=== PATIENT | female | born 1965 | race American Indian/Alaskan Native ===

== ENCOUNTER 2016-11-26 18:27 | Emergency (ER) | payer SELFPAY ==
[2016-11-26 18:28] VITALS: BMI 31.0
--- NOTE | 2016-11-26 18:41 | ED PDOC ---
Arrival/HPI - General Time Seen by Provider: 11/26/16 18:33 Historian: Patient - History of Present Illness Narrative History of Present Illness (Text): 11/26/16 18:40 51 year old female presents to the emergency department with right sided arm pain radiating from the arm to the neck since this morning. Patient describes a shooting pain that comes in intermittent "electric shocks." Denies fall or injury. Denies shortness of breath, lower extremity pain, or other complaints. PMD: None Time/Duration: 24 hours Symptom Onset: Sudden Symptom Course: Intermittent Modifying Factors (Text): None Associated Symptoms (Text): None Past Medical History - Provider Review Nursing Documentation Reviewed: Yes - Tetanus Immunization Tetanus Immunization: Up to Date - Past Medical History Past Medical History: No Previous - Psychiatric Hx Substance Use: No - Surgical History Hx Section: Yes (x3) - Anesthesia Hx Anesthesia: Yes Hx Anesthesia Reactions: No - Suicidal Assessment Feels Threatened In Home Enviroment: No Family/Social History - Physician Review Nursing Documentation Reviewed: Yes Family/Social History: Unknown Family HX Smoking Status: Never Smoked Hx Alcohol Use: No Hx Substance Use: No Hx Substance Use Treatment: No Allergies/Home Meds Allergies/Adverse Reactions: Allergies No Known Allergies Allergy (Verified 09/14/14 20:33) Review of Systems - Physician Review All systems were reviewed & negative as marked: Yes - Review of Systems Respiratory: absent: SOB Cardiovascular: Chest Pain. absent: Edema, Calf Pain Musculoskeletal: Other (Right arm pain radiating to the neck) Physical Exam Vital Signs Reviewed: Yes Vital Signs Temp Pulse Resp BP Pulse Ox 11/26/16 22:21 60 16 98 11/26/16 20:54 58 L 14 146/89 96 11/26/16 20:25 62 14 152/88 H 96 11/26/16 18:51 98.2 F 71 16 165/97 H 100 Temperature: Afebrile Blood Pressure: Hypertensive Pulse: Regular Respiratory Rate: Normal Appearance: Positive for: Well-Appearing, Non-Toxic, Comfortable Pain Distress: None Mental Status: Positive for: Alert and Oriented X 3 - Systems Exam Head: Present: Atraumatic, Normocephalic Pupils: Present: PERRL Extroacular Muscles: Present: EOMI Conjunctiva: Present: Normal Mouth: Present: Moist Mucous Membranes Neck: Present: Normal Range of Motion Respiratory/Chest: Present: Clear to Auscultation, Good Air Exchange. No: Respiratory Distress, Accessory Muscle Use Cardiovascular: Present: Regular Rate and Rhythm, Normal S1, S2. No: Murmurs Abdomen: Present: Normal Bowel Sounds. No: Tenderness, Distention, Peritoneal Signs Back: Present: Normal Inspection Upper Extremity: Present: Normal Inspection. No: Cyanosis, Edema Lower Extremity: Present: Normal Inspection. No: Edema Neurological: Present: GCS=15, CN II-XII Intact, Speech Normal Skin: Present: Warm, Dry, Normal Color. No: Rashes Psychiatric: Present: Alert, Oriented x 3, Normal Insight, Normal Concentration Medical Decision Making ED Course and Treatment: Impression: 51 year old female presents to the emergency department with right sided arm pain radiating from the arm to the neck since this morning. Differential Diagnosis include but are not limited to: Plan: -- EKG, Chest X-ray -- Labs -- Reassess and disposition Progress Notes: 11/26/16 21:54 pt with left sided neck pain to left arm, and "left chest". suspectd cervical etiology vs thorasic outlet. trop neg. ekg wnl atypical cp. advise outpt f/u and return precautions - Lab Interpretations Lab Results: 11/26/16 19:39 11/26/16 19:39 Lab Results 11/26/16 20:30: Urine Color Yellow, Urine Appearance Clear, Urine pH 6.0, Ur Specific [place] 1.025, Urine Protein Negative, Urine Glucose (UA) Negative, Urine Ketones Negative, Urine Blood Negative, Urine Nitrate Negative, Urine Bilirubin Negative, Urine Urobilinogen 1.0 H, Ur Leukocyte Esterase Negative, Urine HCG, Qual Negative 11/26/16 19:39: WBC 6.9, RBC 4.55, Hgb 12.2, Hct 37.6, MCV 82.6, MCH 26.8, MCHC 32.4, RDW 13.5, Plt Count 223, MPV 9.6, Gran % 63.0, Lymph % (Auto) 27.0, [place] % (Auto) 5.6, Eos % (Auto) 3.8, Baso % (Auto) 0.6, Gran # 4.36, Lymph # 1.9, [place] # 0.4, Eos # 0.3, Baso # 0.04, PT 11.1, INR 1.03, APTT 28.6, Sodium 141, Potassium 4.1, Chloride 105, Carbon Dioxide 29, Anion Gap 11, BUN 23 H, Creatinine 0.8, Est GFR ( Amer) > 60, Est GFR (Non-Af Amer) > 60, Random Glucose 90, Calcium 9.2, Magnesium 2.0, Total Bilirubin 0.8, AST 27, ALT 34, Alkaline Phosphatase 77, Lactate Dehydrogenase 518, Total Creatine Kinase 74, Troponin I < 0.01, Total Protein 8.4 H, Albumin 4.0, Globulin 4.4, Albumin/ Globulin Ratio 0.9 L - RAD Interpretation Radiology Orders: 11/26/16 18:47 CHEST PORTABLE [RAD] Stat - EKG Interpretation EKG Interpretation (Text): EKG shows NSR at 66 BPM, no ST/T wave changes Interpreted by ED Physician: Yes Type: 12 lead EKG - Medication Orders Current Medication Orders: Discontinued Medications Ketorolac Tromethamine (Toradol) 30 mg IVP STAT STA Stop: 11/26/16 19:55 Last Admin: 11/26/16 20:53 Dose: 30 MG IVP Administration Document 11/26/16 20:53 CAST (Rec: 11/26/16 20:54 [id number]) Charges for Administration # of IVP Administrations 1 - Scribe Statement The provider has reviewed the documentation as recorded by the Aniyah Smith Provider Scribe Attestation: All medical record entries made by the Mariselibetinene were at my direction and personally dictated by me. I have reviewed the chart and agree that the record accurately reflects my personal performance of the history, physical exam, medical decision making, and the department course for this patient. I have also personally directed, reviewed, and agree with the discharge instructions and disposition. Disposition/Present on Arrival - Present on Arrival Any Indicators Present on Arrival: No History of DVT/PE: No History of Uncontrolled Diabetes: No Urinary Catheter: No History Surgical Site Infection Following: None - Disposition Have Diagnosis and Disposition been Completed?: Yes Diagnosis: Chest pain, Neck pain Disposition: HOME/ ROUTINE Disposition Time: 21:55 Condition: STABLE Discharge Instructions (ExitCare): Chest Pain (ED) Additional Instructions: please see specialist. return to er with worsening symptoms or concerns. Prescriptions: Naproxen 500 mg PO BID PRN #14 PRN Reason: Pain, Mild (1-3) Referrals: PCP,NO [Primary Care Provider] - Follow up with primary [facility] [place] [Outside] - Follow up with primary [facility] [Outside] - Follow up with primary Francisco Shane MD [Staff Provider] - Follow up with primary Sharif Goncalves MD [Staff Provider] - Follow up with primary
[2016-11-26 18:52] VITALS: TEMP 98.2
[2016-11-26 19:44] LABS: ADD MANUAL DIFF? NO
[2016-11-26 19:53] LABS: BASO # 0.04 K/mm3 (0.0-2.0); BASO % 0.6 % (0.0-3.0); EOS # 0.3 (0.0-0.7); EOS % 3.8 % (1.5-5.0); GRAN # 4.36 (1.4-6.5); HEMATOCRIT 37.6 % (36.0-48.0); LYMPH # 1.9 (1.2-3.4); MEAN CELL VOLUME 82.6 fL (80.0-105.0); MEAN CORPUSCULAR HEMOGLOBIN 26.8 pg (25.0-35.0); MEAN CORPUSCULAR HGB CONC 32.4 g/dl (31.0-37.0); MEAN PLATELET VOLUME 9.6 fl (7.0-11.0); MONO # 0.4 (0.1-0.6); MONO % 5.6 % (1.0-6.0); PLATELET COUNT 223 10^3/uL (120.0-450.0); RED CELL DISTRIBUTION WIDTH 13.5 % (11.5-14.5); WHITE BLOOD COUNT 6.9 10^3/ul (4.5-11.0)
[2016-11-26 19:59] LABS: ALB/GLOB RATIO 0.9 (1.1-1.8); ALKALINE PHOSPHATASE 77 U/L (38-133); ALT/SGPT 34 U/L (7-56); AST/SGOT 27 U/L (15-39); BILIRUBIN,TOTAL 0.8 mg/dL (0.2-1.3); BLOOD UREA NITROGEN 23 mg/dL (7-21); CALCIUM 9.2 mg/dL (8.4-10.5); CARBON DIOXIDE 29 mmol/L (21-33); CHLORIDE 105 mmol/L (98-107); GFR AFRICAN-AMERICAN > 60; GLUCOSE,RANDOM 90 mg/dL (70-110); POTASSIUM 4.1 mmol/L (3.6-5.0); SODIUM 141 mmol/L (132-148); TOTAL PROTEIN 8.4 g/dL (5.8-8.3)
[2016-11-26 20:01] LABS: INR 1.03 (0.93-1.08); PARTIAL THROMBOPLASTIN TIME 28.6 Seconds (23.7-30.8)
[2016-11-26 20:12] LABS: TROPONIN I < 0.01 ng/mL
[2016-11-26 20:56] VITALS: BP 146/89
[2016-11-26 20:57] LABS: URINE BILIRUBIN NEGATIVE (NEGATIVE); URINE BLOOD NEGATIVE (NEGATIVE); URINE GLUCOSE (UA) NEGATIVE (NEGATIVE); URINE KETONE NEGATIVE (NEGATIVE); URINE LEUKOCYTE ESTERASE NEGATIVE Leu/uL (NEGATIVE); URINE PROTEIN NEGATIVE mg/dL (<30 mg/dL)
[2016-11-26 20:58] LABS: URINE APPEARANCE CLEAR (CLEAR); URINE COLOR YELLOW (YELLOW)
[2016-11-26 22:21] VITALS: PULSE 60; O2SAT 98
[2016-11-26 22:22] VITALS: RESP 16
--- NOTE | 2016-11-27 09:12 | RAD ---
HISTORY: Chest pain COMPARISON: No prior. FINDINGS: LUNGS: The lungs are well inflated and clear. PLEURA: No significant pleural effusion identified, no pneumothorax apparent. CARDIOVASCULAR: Normal. OSSEOUS STRUCTURES: No significant abnormalities. VISUALIZED UPPER ABDOMEN: Normal. OTHER FINDINGS: None. IMPRESSION: No active pulmonary disease.
--- NOTE | 2016-11-27 12:10 | CARD ---
APPROVED REPORT EKG Measurement Heart [id number] <Conclusion> Normal sinus rhythm Normal ECG
== END 2016-11-26 22:22 | disposition home or self-care (01) ==
LOC: ED 18:27
DX: R07.9 Chest pain, unspecified (principal); M54.2 Cervicalgia
CPT/HCPCS: 71010; 80053; 81003; 82550; 83615; 83735; 84484; 84703; 85025; 85610; 85730; 93005; 96374; 99284; J1885